=== PATIENT | female | born 1975 | race Caucasian/White ===

== ENCOUNTER 2018-01-30 17:43 | Observation (INO) ==
[2018-01-30 18:21] LABS: Basophils # 0.1 K/mm3 (0-0.2); Basophils % 0.5 % (0.1-2.0); Eosinophils # 0.1 K/mm3 (0.0-0.4); Eosinophils % 0.5 % (0.1-12.0); Hematocrit 44.5 % (37.0-47.0); Hemoglobin 14.4 g/dL (12.2-16.2); Lymphocytes # 3.8 K/mm3 (0.7-4.5); Lymphocytes % 25.1 % (10-50); Mean Corpuscular HGB Conc 32.3 g/dL (31.8-35.4); Mean Corpuscular Hemoglobin 30.9 pg (27.0-31.2); Mean Corpuscular Volume 95.7 fl (81-99); Mean Platelet Volume 7.1 fl (7.4-10.4); Monocytes # 0.8 K/mm3 (0.1-1.0); Neutrophils # 10.4 K/mm3 (1.8-7.8); Neutrophils % 68.9 % (37.0-80.0); Platelet Count 371 K/mm3 (142-424); Red Blood Count 4.65 M/mm3 (4.20-5.40); White Blood Count 15.1 K/mm3 (4.8-10.8)
[2018-01-30 18:28] LABS: Anion Gap 9.7 mEq/L (5-15); Calcium 8.9 mg/dL (8.5-10.1); Potassium 3.7 mmoL/L (3.5-5.1)
--- NOTE | 2018-01-30 18:46 | Emergency Department Note ---
ED Disposition Clinical Impression: Acute exacerbation of chronic obstructive airways disease Disposition: Admitted as Observation Condition on Discharge: Fair Time of Disposition: 18:59 - Critical Care Critical Care Time: No Attestation: On 01/30/18, the high probability of a clinically significant, sudden or life threatening deterioration of the following system(s) required my full and direct attention, intervention and personal management. The time I documented below is in addition to time spent performing reported procedures but includes the following listed in this critical care notation. Medical Decision Making - Medical Records Medical records reviewed: Yes: I reviewed the patient's medical records. - Norberto Inquiry Pt receiving controlled substance: No Norberto was queried for this patient: No Vital Signs: 01/30/18 17:48 01/30/18 18:09 01/30/18 19:01 Temperature 98.2 F Temperature Source Oral Pulse Rate 106 H 101 H Pulse Rate [Left Radial] 116 H Respiratory Rate 22 Blood Pressure Blood Pressure [Right Arm] 110/76 Blood Pressure Mean [Right Arm] 87 Blood Pressure Source [Right Arm] Automatic Cuff Blood Pressure Position [Right Arm] Sitting 02 Sat by Pulse Oximetry 97 Oxygen Delivery Method Room Air 01/30/18 19:14 01/30/18 19:59 Temperature 98.5 F Temperature Source Oral Pulse Rate 127 H Pulse Rate [Left Radial] 129 H Respiratory Rate 15 19 Blood Pressure 104/59 L Blood Pressure [Right Arm] 105/60 L Blood Pressure Mean [Right Arm] 75 Blood Pressure Source [Right Arm] Blood Pressure Position [Right Arm] 02 Sat by Pulse Oximetry 92 L Oxygen Delivery Method Room Air Room Air - Lab Data Lab results reviewed: Yes: I reviewed the patient's lab results. Lab Results 01/30/18 18:10: WBC 15.1 H, RBC 4.65, Hgb 14.4, Hct 44.5, MCV 95.7, MCH 30.9, MCHC 32.3, RDW 13.0, Plt Count 371, MPV 7.1 L, Neut % (Auto) 68.9, Lymph % (Auto) 25.1, [place] % (Auto) 5.0, Eos % (Auto) 0.5, Baso % (Auto) 0.5, Neut # (Auto) 10.4 H, Lymph # (Auto) 3.8, [place] # (Auto) 0.8, Eos # (Auto) 0.1, Baso # (Auto) 0.1, Total Counted 100, Neutrophils % (Manual) 72, Lymphocytes % (Manual) 20, Monocytes % (Manual) 8, Platelet Estimate Normal, RBC Morphology Normal 01/30/18 18:10: Sodium 136, Potassium 3.7, Chloride 98, Carbon Dioxide 32, Anion Gap 9.7, BUN 8, Creatinine 0.76, Estimated Creat Clear 75, Estimated GFR 83, Est GFR ( Amer) 101, Glucose 100, Calcium 8.9 01/30/18 18:10: Lactate 1.1 Result diagrams: 01/30/18 18:10 01/30/18 18:10 Orders (Tests/Meds): ED MEDICATIONS Generic Name Dose Route Start Last Admin Trade Name Freq PRN Reason Stop Dose Admin Acetaminophen 650 mg 01/30/18 20:08 Acetaminophen 325mg Tab PO 03/01/18 19:28 Q4HP PRN As Needed for Fever or Pain Albuterol/Ipratropium 3 ml 01/30/18 22:00 01/31/18 10:41 Duoneb 3ml [facility] 03/01/18 21:59 3 ml Q4RT BRITNEY Administration Budesonide 0.5 mg 01/31/18 06:00 01/31/18 06:38 Pulmicort 0.5mg/2ml [facility] 03/02/18 05:59 Not Given BIDRT BRITNEY Lactated Ringer's 1,000 mls @ 150 mls/hr 01/30/18 20:08 01/31/18 07:00 Lactated Ringer's 1000 Ml Bag IV 03/01/18 19:29 150 mls/hr .Q6H40M BRITNEY Administration Levofloxacin/Dextrose 500 mg in 100 mls @ 100 mls/hr 01/31/18 19:00 Levaquin 500mg/100ml Premix IV 02/13/18 18:59 Q24H [facility] Protocol Ibuprofen 400 mg 01/30/18 20:08 01/30/18 23:10 Motrin 400mg Tablet PO 03/01/18 19:28 400 mg Q6HP PRN Administration Mild Pain Nicotine 21 mg 01/30/18 20:08 Nicoderm 21mg/24hr Patch TD 03/01/18 19:28 DAILYP PRN Nicotine Cravings Ondansetron HCl 4 mg 01/30/18 20:08 Zofran 4mg/2ml Vial IV 03/01/18 19:28 Q8HP PRN Nausea Discontinued Medications Generic Name Dose Route Start Last Admin Trade Name Freq PRN Reason Stop Dose Admin Acetaminophen 650 mg 01/30/18 19:29 Acetaminophen 325mg Tab PO 03/01/18 19:28 Q4HP PRN As Needed for Fever or Pain Acetylcysteine 2 ml 01/30/18 18:59 01/30/18 19:01 Mucomyst 20% 4ml Vial INHALATION 01/30/18 19:00 2 ml ONCE ONE Administration Albuterol/Ipratropium 3 ml 01/30/18 17:53 01/30/18 18:08 Duoneb 3ml [facility] 01/30/18 17:54 3 ml ONCE ONE Administration Albuterol/Ipratropium 3 ml 01/30/18 19:00 01/30/18 19:01 Duoneb 3ml [facility] 01/30/18 19:01 3 ml ONCE ONE Administration Albuterol/Ipratropium 3 ml 01/30/18 22:00 Duoneb 3ml [facility] 03/01/18 21:59 Q4RT BRITNEY Budesonide 0.5 mg 01/31/18 06:00 01/30/18 18:20 Pulmicort 0.5mg/2ml [facility] 03/02/18 05:59 0.5 mg BIDRT BRITNEY Administration Dexamethasone Sodium Phosphate 20 mg 01/30/18 18:17 01/30/18 18:17 Decadron 4mg/Ml 1ml Vial IV 01/30/18 18:18 20 mg ONCE ONE Administration Hydrocodone Bit/Homatropine Methylb 1 each 01/30/18 19:31 01/30/18 19:35 Hycodan 5mg Tablet PO 01/30/18 19:32 1 each ONCE ONE Administration Sodium Chloride 1,000 mls @ 999 mls/hr 01/30/18 18:30 01/30/18 18:18 Sod Chlor 0.9% 1000ml Bag IV 01/30/18 19:30 999 mls/hr .Q1H1M BRITNEY Administration Lactated Ringer's 1,000 mls @ 150 mls/hr 01/30/18 19:30 01/30/18 23:15 Lactated Ringer's 1000 Ml Bag IV 03/01/18 19:29 Not Given .Q6H40M BRITNEY Levofloxacin/Dextrose 500 mg in 100 mls @ 100 mls/hr 01/30/18 19:45 01/30/18 19:38 Levaquin 500mg/100ml Premix IV 02/13/18 19:44 100 mls/hr Q24H BRITNEY Administration Protocol Ibuprofen 400 mg 01/30/18 19:29 Motrin 400mg Tablet PO 03/01/18 19:28 Q6HP PRN Mild Pain Ketorolac Tromethamine 30 mg 01/30/18 19:31 01/30/18 19:35 Toradol 30mg/Ml Vial IV 01/30/18 19:32 30 mg ONCE ONE Administration Methylprednisolone Sodium Succinate 125 mg 01/30/18 17:55 01/30/18 18:18 Solu-Medrol 125mg/2ml Vial IV 01/30/18 17:56 Not Given ONCE ONE Nicotine 21 mg 01/30/18 19:29 Nicoderm 21mg/24hr Patch TD 03/01/18 19:28 DAILYP PRN Nicotine Cravings Non-Formulary Medication 1 inh 01/30/18 20:08 01/31/18 06:49 Fluticasone/Vilanterol [Breo Ellipta 100-25 Mcg Inh] INHALATION 03/01/18 20:07 Not Given Q24H BRITNEY Ondansetron HCl 4 mg 01/30/18 19:29 Zofran 4mg/2ml Vial IV 03/01/18 19:28 Q8HP PRN Nausea ORDERS Category Date Time Status Blood Culture Stat Micro 01/30/18 18:10 Received Sputum Culture & Gram Stain Stat Micro 01/30/18 19:41 Ordered - Radiology Data #1 Image(s): Chest Image Reviewed: Yes I reviewed the patient's radiology results Preliminary Findings: Abnormal, No Infiltrates Seen (Marked COPD hyperinflation no obvious pneumonia multiple, small nodules) - ECG Data Tracing #1 I reviewed this ECG and interpreted as documented below: Normal Sinus Rhythm: Yes Arrhythmias present: sinus tach Medical Decision Narrative: Eventual diagnosis exacerbation of COPD, pneumonia, respiratory distress, viral URI General Adult HPI - General Chief complaint: Shortness of Breath/Dyspnea Stated complaint: Cough, congestion, pain in lungs Time Seen by Provider: 01/30/18 17:50 Mode of Arrival: Ambulatory Limitations: No Limitations Description of Symptoms (Recalled from ER Triage Doc. by RN): PT states that she is SOA with cough and pain in her right chest for about a week with a fever - History of Present Illness HPI narrative: Patient with a history of COPD complains of increased shortness of breath the last couple days she still smokes daily last admission was 1 year ago. Has a history of being exposed to spray paint in the past Consistency: constant Relieving factors: none - Related Data Home Medications Medication Instructions Recorded Confirmed albuterol sulfate HFA 90 2 puff INHALATION Q4-6H PRN 05/15/17 01/30/18 mcg/actuation aerosol inhaler Previous Rx's Medication Instructions Recorded Azithromycin [Zithromax 250mg 250 mg PO DIRECTED #6 tab 01/31/18 tab] predniSONE [Prednisone 20mg 20 mg PO BID #10 tab 01/31/18 Tab] Allergies Allergy/AdvReac Type Severity Reaction Status Date / Time codeine [CODEINE] Allergy Unknown Verified 05/16/17 12:43 Penicillins [PENICILLINS] Allergy Unknown Verified 05/16/17 12:43 [facility] History - Hepatitis A Screen Drug use history?: No High risk sexual behaviors?: No History of sexually transmitted infection?: No Currently employed?: No Childcare worker?: No Do you have indoor plumbing?: Yes Do you have electricity?: Yes Attestation statement:: This patient has been screened for Hepatitis A risk factors. I have reviewed the patient's past medical history: Yes Medical History: Denies:: Diabetes Mellitus Type 1, Diabetes Mellitus Type 2 Laterality Cases: Right: Other - Social History Smoking Status: Current every day smoker Alcohol Intake: never - Psychiatric History Expresses thoughts of harming self/others: None Suicide Plan Description: No Plan ROS Obtained: Yes All systems reviewed & no additional complaints - Constitutional Constitutional: Reports fatigue, Reports weakness - Respiratory Respiratory: Yes as per HPI, Yes non-productive cough, Yes dyspnea on exertion, Yes pain on inspiration, Yes pain with cough Physical Exam - General General appearance: alert, in distress (Tachypneic tachycardic short of breath) - Head Head exam: atraumatic, normocephalic, normal inspection - Eye Eye exam: Present: normal appearance, PERRL, EOMI - ENT ENT exam: Present: normal exam, normal oropharynx, mucous membranes moist, TM's normal bilaterally, normal external ear exam - Neck Neck exam: Present: normal inspection, full ROM, trachea midline. Absent: meningismus, lymphadenopathy - Chest Chest inspection: Present: normal inspection, symmetric chest wall rise, tenderness (Right upper quadrant right anterior chest wall tenderness on respiration and palpation) - Respiratory Respiratory exam: Present: respiratory distress, wheezes, accessory muscle use, prolonged expiratory phase (Bilateral rhonchi worse cough) - Cardiovascular Cardiovascular exam: Present: regular rate, normal rhythm. Absent: JVD - Abdominal Exam Abdominal exam: Present: soft, normal bowel sounds. Absent: distention, tenderness, guarding - Extremities Exam Extremities exam: Present: normal inspection, full ROM, normal capillary refill. Absent: calf tenderness - Back Exam Back exam: Present: normal inspection. Absent: tenderness - Neurological Exam Neurological exam: Present: alert, oriented X3 - Psychiatric Psychiatric exam: Present: normal affect, normal mood - Skin Skin exam: Present: warm, dry, intact, normal color - Lymphatic Lymphatic Findings: no adenopathy
[2018-01-30 19:39] LABS: Lymphocytes % 20 % (10-50); Monocytes % 8 % (2-9); Neutrophils % 72 % (42-76); RBC Morphology Normal; Total Cells Counted 100
--- NOTE | 2018-01-31 07:27 | Pharmacy Consult Notes ---
[facility] Pharmacy VTE Monitoring - Patient Demographics Admission date: 01/30/18 Report Date: 01/31/18 Time: 07:27 Allergies/Adverse Reactions: Patient Allergies codeine [CODEINE] Allergy (Unknown, Verified 05/16/17 12:43) Penicillins [PENICILLINS] Allergy (Unknown, Verified 05/16/17 12:43) Height: 1.63 m Weight: 46.068 kg Patient Problems: Current Active Problems Acute exacerbation of chronic obstructive airways disease (Acute) - VTE Risk Labs: VTE Related Lab Results Hgb 14.4 g/dL (12.2-16.2) 01/30/18 18:10 Hct 44.5 % (37.0-47.0) 01/30/18 18:10 Plt Count 371 K/mm3 (142-424) 01/30/18 18:10 BUN 8 mg/dL (7-18) 01/30/18 18:10 Creatinine 0.76 mg/dL (0.55-1.02) 01/30/18 18:10 Estimated Creat Clear 75 mL/min (50-200) 01/30/18 18:10 Was VTE Risk Assessment Performed: Yes VTE Score: 7 VTE Risk Level: Moderate Risk - Prophylaxis VTE Prophylaxis Ordered?: Yes Types of VTE Prophylaxis: TEDS Knee High Location of Applied Device: Bilateral Lower Extremeties - VTE Diagnosis Confirmed Treatment or plan recommended: Continue Current Treatment
--- NOTE | 2018-01-31 12:37 | H&P/Discharge Summary ---
General - General Admission date:: 01/30/18 Discharge date: 01/31/18 *Admission Date: 01/30/18 *Chief complaint: sob *History of present illness: 42 yr old female Patient with a history of COPD complains of increased shortness of breath the last couple days.Pt states sob was becoming worse. Pt admitted for copd ex. [facility] History I have reviewed the patient's past medical history: Yes Medical History: Reports:: Congestive Heart Failure Denies:: Diabetes Mellitus Type 1, Diabetes Mellitus Type 2 Other Medical History: Reports: Anemia, Arthritis Laterality Cases: Right: Other Other Surgeries: Yes: Cholecystectomy, Hernia Repair, Splenectomy, Tubal Ligation, Other ((R) Ankle) Fractures: Yes (Vertebrae) - *Social History Educational Level: Attended College Smoking Status: Current every day smoker Tobacco Type: cigarettes # Packs/Day (cigarettes): 1 Alcohol Intake: never Substance Use Type: marijuana Occupational Status: unemployed Housing: other Household Members: family - Psychiatric History Expresses thoughts of harming self/others: None Suicide Plan Description: No Plan *Family Hx:: Coronary Artery Disease, Diabetes, Heart Attack, Hyperlipidemia, Hypertension, Stroke, Thyroid Disorder Review of Systems - Review of Systems Review of systems:: pertinent systems reviewed and negative unless documented below - Constitutional Denies body ache(s) - Eyes Denies bulging eyes - ENT Denies change in voice - *Cardiovascular Reports shortness of breath, Denies chest pain at rest - *Respiratory Reports change in phlegm color, Reports cough, Reports shortness of breath, Reports shortness of breath with activity - *Gastrointestinal Denies loose stools - *Genitourinary Denies absent period - *Musculoskeletal Denies decreased muscle mass - Integumentary/Breasts Denies rash - *Neurologic Reports weakness - Psychiatric Denies anxiety - Endocrine Denies flushing - Hematologic/Lymphatic Denies enlarged lymph nodes - Allergic/Immunologic Denies tongue swelling Exam Vital signs and Labs for Last 24 Hours: Temp Pulse Resp BP Pulse Ox 97.9 F 98 H 18 101/56 L 98 01/31/18 08:00 01/31/18 08:00 01/31/18 08:00 01/31/18 08:00 01/31/18 08:00 Laboratory Results - last 24 hr 01/30/18 18:10: WBC 15.1 H, RBC 4.65, Hgb 14.4, Hct 44.5, MCV 95.7, MCH 30.9, MCHC 32.3, RDW 13.0, Plt Count 371, MPV 7.1 L, Neut % (Auto) 68.9, Lymph % (Auto) 25.1, [place] % (Auto) 5.0, Eos % (Auto) 0.5, Baso % (Auto) 0.5, Neut # (Auto) 10.4 H, Lymph # (Auto) 3.8, [place] # (Auto) 0.8, Eos # (Auto) 0.1, Baso # (Auto) 0.1, Total Counted 100, Neutrophils % (Manual) 72, Lymphocytes % (Manual) 20, Monocytes % (Manual) 8, Platelet Estimate Normal, RBC Morphology Normal 01/30/18 18:10: Sodium 136, Potassium 3.7, Chloride 98, Carbon Dioxide 32, Anion Gap 9.7, BUN 8, Creatinine 0.76, Estimated Creat Clear 75, Estimated GFR 83, Est GFR ( Amer) 101, Glucose 100, Calcium 8.9 01/30/18 18:10: Lactate 1.1 I & O for Last 24 hours: Intake & Output 01/29/18 01/30/18 01/31/18 02/01/18 11:59 11:59 11:59 11:59 Intake Total 1580 / 1580 Balance 1580 / 1580 Weight 101 lb 9 oz Microbiology Reports for the Last 24 Hours: Microbiology 01/30/18 19:41 Sputum - Expectorated Sputum Gram Stain - Final 01/30/18 19:41 Sputum - Expectorated Sputum Sputum Culture - Preliminary - Constitutional no acute distress - *Routine HEENT Exam Head: Present: normocephalic Eye: Present: PERRL ENT: Present: mucous membranes moist - *Routine Neck Exam Present: supple. Absent: lymphadenopathy - *Routine Respiratory Exam Present: wheezes - *Routine Cardiovascular Exam Present: RRR - *Routine Abdominal Exam Present: soft, normoactive bowel sounds. Absent: tenderness - *Routine Extremities Exam Present: full ROM. Absent: cyanosis, clubbing, edema - *Routine Skin Exam Present: intact, warm. Absent: rash - *Routine Neurological Exam Present: alert, oriented X3 - Routine Psychiatric Exam Present: normal affect Hospital Course Hospital Course: iv steroids, iv antibotics, today pt states she feels much better would like to be dc home. Results Labs on day of discharge: Labs from last 24 hours 01/30/18 01/30/18 01/30/18 18:10 18:10 18:10 WBC 15.1 H RBC 4.65 Hgb 14.4 Hct 44.5 MCV 95.7 MCH 30.9 MCHC 32.3 RDW 13.0 Plt Count 371 MPV 7.1 L Neut % (Auto) 68.9 Lymph % (Auto) 25.1 [place] % (Auto) 5.0 Eos % (Auto) 0.5 Baso % (Auto) 0.5 Neut # (Auto) 10.4 H Lymph # (Auto) 3.8 [place] # (Auto) 0.8 Eos # (Auto) 0.1 Baso # (Auto) 0.1 Total Counted 100 Neutrophils % (Manual) 72 Lymphocytes % (Manual) 20 Monocytes % (Manual) 8 Platelet Estimate Normal RBC Morphology Normal Sodium 136 Potassium 3.7 Chloride 98 Carbon Dioxide 32 Anion Gap 9.7 BUN 8 Creatinine 0.76 Estimated Creat Clear 75 Estimated GFR 83 Est GFR ( Amer) 101 Glucose 100 Lactate 1.1 Calcium 8.9 Preliminary micro results at discharge 01/30/18 19:41 Sputum Culture - Preliminary Sputum - Expectorated Sputum - Additional Comments Rounded with Dr. Senior all orders per [facility]rish Discharge Medications - Medications for Discharge Home Medication List at Discharge: No Action albuterol sulfate HFA 90 mcg/actuation aerosol inhaler 2 puff INHALATION Q4- 6H PRN PRN Reason: soa Disposition Disposition: Home, Self-Care
== END 2018-01-31 13:50 | disposition home or self-care (01) ==
LOC: ER 17:43 → 2ND 17:43
PROVIDERS: ADMIT Emergency Medicine; ATTEND Emergency Medicine

== ENCOUNTER 2019-10-08 22:22 | Emergency (ER) | payer MEDICAID, SELFPAY ==
[2019-10-08 22:32] VITALS: BP 122/79; PULSE 98; RESP 14; TEMP 37.3; O2SAT 99; BMI 17.2
--- NOTE | 2019-10-08 22:54 | HMH.EDSKAF ---
ED Disposition Clinical Impression: Cellulitis, Abscess of skin or subcutaneous tissue, Cellulitis of axilla, right Disposition: Home, Self-Care Condition on Discharge: Good Instructions: Cellulitis Prescriptions: clindamycin HCL [Clindamycin HCl 300mg Cap] 300 mg PO Q6 10 Days #40 cap Transmission Status: Pending to [facility] Referrals: Montez Senior MD [Primary Care Provider] - - Critical Care Critical Care Time: No Attestation: On 10/08/19, the high probability of a clinically significant, sudden or life threatening deterioration of the following system(s) required my full and direct attention, intervention and personal management. The time I documented below is in addition to time spent performing reported procedures but includes the following listed in this critical care notation. Medical Decision Making - Medical Records Medical records reviewed: Yes: I reviewed the patient's medical records. - Norberto Inquiry Pt receiving controlled substance: No Vital Signs: 10/08/19 22:32 Temperature 99.1 F Temperature Source Oral Pulse Rate [Right] 98 H Respiratory Rate 14 Blood Pressure [Right Arm] 122/79 Blood Pressure Mean [Right Arm] 93 Blood Pressure Source [Right Arm] Automatic Cuff Blood Pressure Position [Right Arm] Sitting 02 Sat by Pulse Oximetry 99 Oxygen Delivery Method Room Air - Lab Data Lab results reviewed: Yes: I reviewed the patient's lab results. Skin/Abscess/FB HPI - General Chief complaint: Skin/Abscess/Foreign Body Stated complaint: possible boil under R arm Time Seen by Provider: 10/08/19 22:22 Mode of Arrival: Ambulatory Source of Information: Patient Limitations: No Limitations Description of Symptoms (Recalled from ER Triage Doc. by RN): Pt states a boil started under her right armpit about a week ago, continues to get worse - History of Present Illness HPI narrative: 44-year-old female presents the emergency department with a lesion underneath her right armpit. Patient states that she noticed this bump that is now erythemic and painful about 3 days ago and is progressively gotten worse until she presented here to the ED today. She states the pain is 7 out of 10 and classifies it as a sharp full sensation. She states alleviating factors include elevating her arm and exacerbating factors include arm movement. Patient denies any recent fever shakes or chills. Patient denies any other acute symptoms. - Related Data Home Medications Medication Instructions Recorded Confirmed albuterol sulfate 90 mcg/actuation 2 puff INHALATION Q4-6H PRN 05/15/17 10/08/19 aerosol inhaler Previous Rx's Medication Instructions Recorded clindamycin HCL [Clindamycin HCl 300 mg PO Q6 10 Days #40 cap 10/08/19 300mg Cap] Allergies Allergy/AdvReac Type Severity Reaction Status Date / Time codeine [CODEINE] Allergy Unknown Verified 04/17/19 13:33 Penicillins [PENICILLINS] Allergy Unknown Verified 04/17/19 13:33 [facility] History - Hepatitis A Screen Drug use history?: No High risk sexual behaviors?: No History of sexually transmitted infection?: No Currently employed?: No Childcare worker?: No Do you have indoor plumbing?: Yes Do you have electricity?: Yes Attestation statement:: This patient has been screened for Hepatitis A risk factors. I have reviewed the patient's past medical history: Yes Medical History: Reports:: Congestive Heart Failure Denies:: Diabetes Mellitus Type 1, Diabetes Mellitus Type 2 Other Medical History: Reports: Anemia, Arthritis Laterality Cases: Right: Other Other Surgeries: Yes: Cholecystectomy, Hernia Repair, Splenectomy, Tubal Ligation, Other Fractures: Yes (Vertebrae) Comment: spleen removal, rt ankle sx - Social History Smoking Status: Current every day smoker Tobacco Type: cigarettes # Packs/Day (cigarettes): 1 Alcohol Intake: never Substance Use Type: marijuana Occupational Status: unemployed
[2019-10-08 23:02] VITALS: BP 113/81; PULSE 87; RESP 14; TEMP 37.3; O2SAT 98
== END 2019-10-08 23:04 | disposition home or self-care (01) ==
PROVIDERS: Emergency Provider Family Medicine; PCP Emergency Medicine
DX: L03.111 Cellulitis of right axilla (principal); F17.210 Nicotine dependence, cigarettes, uncomplicated; Z88.0 Allergy status to penicillin; Z88.5 Allergy status to narcotic agent; Z90.49 Acquired absence of other specified parts of digestive tract
CPT/HCPCS: 99281

== ENCOUNTER 2020-03-26 14:03 | Emergency (ER) | payer MEDICAID, SELFPAY ==
[2020-03-26 14:20] VITALS: BP 98/75; PULSE 120; RESP 12; TEMP 36.4; O2SAT 96; BMI 17.6
--- NOTE | 2020-03-26 14:40 | HMH.EDUTC ---
[facility] Disposition Clinical Impression: COPD exacerbation, Exposure to COVID-19 virus Sinusitis Qualifiers: Sinusitis location: unspecified location Chronicity: acute Recurrence: non-recurrent Qualified Code(s): J01.90 - Acute sinusitis, unspecified Disposition: Home, Self-Care Condition on Discharge: Good Instructions: Chronic Obstructive Pulmonary Disease, DI for Sinusitis, Preventing the Spread of Coronavirus Discharge Instructions Additional Instructions: Drink plenty of fluids. Take tylenol for pain or fever. Return if you begin to have difficulty breathing. Follow up with your regular doctor. GO TO THE ER FOR ANY WORSENING SYMPTOMS Prescriptions: Promethazine/Dextromethorphan [Promethazine-Dm Syrup] 5 ml PO Q6HP PRN #240 syrup PRN Reason: Cough Transmission Status: Received by [facility] predniSONE [Prednisone 20mg Tab] 20 mg PO BID 5 Days #10 tab Transmission Status: Received by [facility] Azithromycin [Z-Frankie 250mg Tab*] 250 mg PO UD DOSE PK #6 tab Transmission Status: Received by [facility] Referrals: Montez Senior MD [Primary Care Provider] - Time of Disposition: 14:56 Medical Decision Making - Medical Records Medical records reviewed: No: I reviewed the patient's medical records. - Norberto Inquiry Pt receiving controlled substance: No Vital Signs: 03/26/20 14:20 03/26/20 15:04 Temperature 97.5 F L 97.5 F L Temperature Source Oral Pulse Rate 120 H Pulse Rate [Right Brachial] 120 H Respiratory Rate 12 12 Blood Pressure 98/75 L Blood Pressure [Right Arm] 98/75 L Blood Pressure Mean [Right Arm] 82 Blood Pressure Source [Right Arm] Automatic Cuff Blood Pressure Position [Right Arm] Sitting 02 Sat by Pulse Oximetry 96 Oxygen Delivery Method Room Air [facility] HPI - General Stated complaint: Covid test; exposure Time Seen by Provider: 03/26/20 14:40 Mode of Arrival: Ambulatory Source of Information: Patient Limitations: No Limitations Description of Symptoms (Recalled from Triage Doc. by RN): PATIENT C/O HEADACHE, BODY ACHES, SORE THROAT, AND PRODUCTIVE COUGH WITH GREEN SPUTUM SINCE SATURDAY. REQUESTING COVID TEST HEENT Symptoms (Recalled from RN notes): No Resp Symptoms (Recalled from RN notes): No Skin Symptoms (Recalled from RN notes): No MS Symptoms (Recalled from RN notes): No Functional Status (Recalled from RN notes): WNL - History of Present Illness Provider Complaint: She c/o sinus congestion, cough, shortness of breath and low grade fever. She has had a cough for the past 2 weeks, but over the past 2 days she has got worse and had the sinus congestion also. - Related Data Home Medications Medication Instructions Recorded Confirmed albuterol sulfate 90 mcg/actuation 2 puff INHALATION Q6HP PRN 05/15/17 03/26/20 aerosol inhaler Previous Rx's Medication Instructions Recorded Azithromycin [Z-Frankie 250mg Tab*] 250 mg PO UD DOSE PK #6 tab 03/26/20 Promethazine/Dextromethorphan 5 ml PO Q6HP PRN #240 syrup 03/26/20 [Promethazine-Dm Syrup] predniSONE [Prednisone 20mg 20 mg PO BID 5 Days #10 tab 03/26/20 Tab] Allergies Allergy/AdvReac Type Severity Reaction Status Date / Time codeine [CODEINE] Allergy Unknown Verified 04/17/19 13:33 Penicillins [PENICILLINS] Allergy Unknown Verified 04/17/19 13:33 - Worker's Comp Is this a Worker's Comp case?: No [facility] History - Hepatitis A Screen Drug use history?: No High risk sexual behaviors?: No History of sexually transmitted infection?: No Currently employed?: No Childcare worker?: No Do you have indoor plumbing?: Yes Do you have electricity?: Yes Attestation statement:: This patient has been screened for Hepatitis A risk factors. I have reviewed the patient's past medical history: Yes Medical History: Reports:: Congestive Heart Failure Denies:: Diabetes Mellitus Type 1, Diabetes Mellitus Type 2 Other Medical History
[2020-03-26 15:04] VITALS: BP 98/75; PULSE 120; RESP 12; TEMP 36.4; O2SAT 96
--- NOTE | 2020-03-26 19:21 | PC.NURSE ---
PATIENT NOTIFIED OF POSITIVE COVID RESULTS
== END 2020-03-26 15:10 | disposition home or self-care (01) ==
PROVIDERS: Emergency Provider Nurse Practitioner Family; PCP Emergency Medicine
DX: U07.1 COVID-19 (principal); J44.1 Chronic obstructive pulmonary disease with (acute) exacerbation; J01.90 Acute sinusitis, unspecified; I50.9 Heart failure, unspecified; F17.210 Nicotine dependence, cigarettes, uncomplicated; Z88.0 Allergy status to penicillin; Z88.5 Allergy status to narcotic agent; Z79.899 Other long term (current) drug therapy
CPT/HCPCS: 99202; G0463; U0003